=== PATIENT | female | born 1970 | race Caucasian/White ===

== ENCOUNTER → 2017-01-07 | Outpatient (CLI) | payer MEDICAID ==
[~2017-01-07] MED LIST: CALC1CAP8 PO; CEPH-376 PO; CETI10CA PO; PREN1TAB60 PO; PRIMPRO PO
== END | disposition home or self-care (01) ==
LOC: CFH 09:29
PROVIDERS: ATTEND Family Medicine
DX: Z12.31 Encounter for screening mammogram for malignant neoplasm of breast (principal)
CPT/HCPCS: G0202

== ENCOUNTER 2019-11-23 13:09 | Outpatient (CLI) | payer OTHER | END 2019-11-23 23:59 | disposition home or self-care (01) | LOC: CFH 13:09 | PROVIDERS: ATTEND Family Medicine | DX: J34.2 Deviated nasal septum (principal); J34.89 Other specified disorders of nose and nasal sinuses | CPT/HCPCS: 70486 ==

== ENCOUNTER 2020-01-28 10:22 | Outpatient (CLI) | payer MEDICAID ==
[2020-01-28] MEDS ORDERED: PROG100C16 PO (11:45)
[2020-01-28] MEDS ORDERED: ESTR1TAB15 PO (11:45)
[2020-01-28 11:48] LABS: BASOPHILS # (AUTO) 0.16 x10^3/uL (0-0.1); BASOPHILS % (AUTO) 2 % (0-1); EOSINOPHILS # (AUTO) 0.22 x10^3/uL (0-0.4); EOSINOPHILS % (AUTO) 3 % (1-7); LYMPHOCYTES # (AUTO) 2.56 x10^3/uL (1-3.4); LYMPHOCYTES % (AUTO) 29 % (22-44); MD NO; MEAN CORPUSCULAR HEMOGLOBIN 30.8 pg (27.0-34.8); MEAN CORPUSCULAR HGB CONC 33.5 g/dL (32.4-35.8); MEAN PLATELET VOLUME 8.6 fL (7.4-10.4); MONOCYTES # (AUTO) 0.46 x10^3/uL (0.2-0.8); MONOCYTES % (AUTO) 5 % (2-9); NEUTROPHILS # (AUTO) 5.49 x10^3/uL (1.8-6.8); NEUTROPHILS % (AUTO) 62 % (42-75); PLATELET COUNT 284 x10^3/uL (130-400); RED BLOOD COUNT 4.76 x10^6/uL (3.82-5.3); RED CELL DISTRIBUTION WIDTH 12.8 % (9.6-15.2)
[2020-01-28 11:56] LABS: CHLORIDE 107 mmol/L (98-107)
[2020-01-28 12:07] LABS: ALANINE AMINOTRANSFERASE 22 U/L (12-78); ALBUMIN 3.6 g/dL (3.4-5.0); ALKALINE PHOSPHATASE 82 U/L (45-117); ANION GAP 5 mmol/L (5-15); BILIRUBIN,TOTAL 0.3 mg/dL (0.2-1.0); CREATININE 0.58 mg/dL (0.55-1.02)
== END 2020-01-28 23:59 | disposition home or self-care (01) ==
LOC: STAR 10:22
PROVIDERS: ATTEND Obstetrics & Gynecology
DX: Z01.818 Encounter for other preprocedural examination (principal); N95.0 Postmenopausal bleeding; D21.9 Benign neoplasm of connective and other soft tissue, unspecified
CPT/HCPCS: 36415; 80053; 84703; 85025; 93005

== ENCOUNTER 2020-02-03 11:17 | Day surgery (SDC) | payer MEDICAID ==
[~2020-02-03] VITALS: Ht 165.1 cm; Wt 76.9 kg
[~2020-02-03 11:17] MED LIST changes: +BUPIVACAINE/PF 0.25% ONE; +EPINEPHRINE 1 MG/ML, 1ML ONE; +ESTR1TAB15 PO; +FLUORESCEIN SODIUM 500 MG/5 ML ONE; +PROG100C16 PO
[2020-02-03] MEDS ORDERED: CHLORHEXIDINE 15 ML UDC MM ONE (12:30)
[2020-02-03] MEDS ORDERED: LACTATED RINGERS 1,000 ML IV SCH (12:30)
[2020-02-03] MEDS ORDERED: MIDAZOLAM 1 MG/ML, 2ML ONE (13:21)
[2020-02-03] MEDS ORDERED: FENTANYL PF 250 MCG/5ML ONE (13:21)
[2020-02-03] MEDS ORDERED: hydrALAzine 20 MG/ML, 1ML IV PRN (13:30)
[2020-02-03] MEDS ORDERED: HALOPERIDOL 5 MG/ML IV PRN (13:30)
[2020-02-03] MEDS ORDERED: MEPERIDINE/PF 25MG/0.5ML IVPush PRN (13:30)
[2020-02-03] MEDS ORDERED: FENTANYL PF 100 MCG/2ML IV PRN (13:30)
[2020-02-03] MEDS ORDERED: OXYcodone 5 MG/5 ML ORAL.SOL UDC PO PRN (13:30)
[2020-02-03] MEDS ORDERED: DIPHENHYDRAMINE 50 MG/ML, 1ML IVPush PRN (13:30)
[2020-02-03] MEDS ORDERED: PROMETHAZINE 25 MG/ML, 1ML IVPush PRN (13:30)
[2020-02-03] MEDS ORDERED: HYDROmorphone 1 MG/ML, 1ML INJ IVPush PRN (13:30)
[2020-02-03] MEDS ORDERED: LABETALOL 5MG/ML, 20ML IV PRN (13:30)
[2020-02-03] MEDS ORDERED: SCOPOLAMINE 1MG PATCH TD ONE (13:42)
[2020-02-03] MEDS ORDERED: CEFAZOLIN 1,000 MG ONE (15:42)
[2020-02-03] MEDS ORDERED: ROCURONIUM 10MG/ML,5ML ONE (15:42)
[2020-02-03] MEDS ORDERED: GLYCOPYRROLATE 0.2MG/1ML, 5ML ONE (15:42)
[2020-02-03] MEDS ORDERED: NEOSTIGMINE 1 MG/ML, 10ML ONE (15:42)
[2020-02-03] MEDS ORDERED: SUCCINYLCHOLINE 20 MG/ML, 10ML ONE (15:42)
[2020-02-03] MEDS ORDERED: PROPOFOL 10 MG/ML, 20ML ONE (15:42)
[2020-02-03] MEDS ORDERED: DEXAMETHASONE 4 MG/ML, 1ML ONE (15:42)
[2020-02-03] MEDS ORDERED: ONDANSETRON 2MG/ML, 2ML ONE (15:42)
[2020-02-03] MEDS ORDERED: PROMETHAZINE 25 MG/ML, 1ML ONE (16:34)
[2020-02-03] MEDS ORDERED: FENTANYL PF 100 MCG/2ML ONE (16:34)
[2020-02-03] MEDS ORDERED: OXYcodone 5 MG/5 ML ORAL.SOL UDC ONE (16:35)
[2020-02-03] MEDS ORDERED: MEPERIDINE/PF 25MG/ML,1ML ONE (17:03)
[2020-02-03 19:39] LABS: BASOPHILS % (AUTO) 0 % (0-1); EOSINOPHILS % (AUTO) 0 % (1-7); LYMPHOCYTES % (AUTO) 7 % (22-44); MEAN CORPUSCULAR HEMOGLOBIN 30.3 pg (27.0-34.8); MEAN CORPUSCULAR HGB CONC 33.6 g/dL (32.4-35.8); MEAN PLATELET VOLUME 8.3 fL (7.4-10.4); MONOCYTES % (AUTO) 1 % (2-9); NEUTROPHILS % (AUTO) 91 % (42-75); PLATELET COUNT 258 x10^3/uL (130-400); RED BLOOD COUNT 4.52 x10^6/uL (3.82-5.3)
[2020-02-03 20:00] VITALS: BP 118/59
[2020-02-03] MEDS ORDERED: ONDANSETRON 2MG/ML, 2ML IV PRN (20:00)
[2020-02-03] MEDS ORDERED: OXYcodone/APAP 5/325MG TABLET PO PRN (20:00)
[2020-02-03] MEDS ORDERED: MEPERIDINE/PF 100 MG/ML IM PRN (20:00)
[2020-02-03] MEDS ORDERED: morphine SULFATE 10 MG/ML, 1ML IV PRN (20:00)
[2020-02-03] MEDS ORDERED: D5%-LACTATED RINGERS 1,000 ML IV SCH (20:00)
[2020-02-03 20:20] LABS: MD SCAN
[2020-02-03] MEDS ORDERED: IBUPROFEN 600 MG TABLET PO SCH (21:00)
[2020-02-03] MEDS ORDERED: DOCUSATE 100 MG CAPSULE PO SCH (21:00)
[2020-02-03] MEDS ORDERED: SIMETHICONE 80 MG CHEW TAB PO SCH (21:00)
[2020-02-03] MEDS ORDERED: OXYC-302 PO (21:13)
[2020-02-03] MEDS ORDERED: DOCU-131 PO (21:15)
[2020-02-03] MEDS ORDERED: IBUP-1222 PO (21:15)
== END 2020-02-03 22:07 | disposition home or self-care (01) ==
LOC: OUT 11:17 → 4NE 19:06 → OUT 22:07
PROVIDERS: ATTEND Obstetrics & Gynecology
DX: N95.0 Postmenopausal bleeding (principal); Z20.828 Contact with and (suspected) exposure to other viral communicable diseases; D25.9 Leiomyoma of uterus, unspecified; N80.0 Endometriosis of uterus; N73.6 Female pelvic peritoneal adhesions (postinfective); Z79.899 Other long term (current) drug therapy; Z88.0 Allergy status to penicillin; Z88.8 Allergy status to other drugs, medicaments and biological substances; Z90.722 Acquired absence of ovaries, bilateral; Z90.79 Acquired absence of other genital organ(s); Z90.49 Acquired absence of other specified parts of digestive tract; Z98.890 Other specified postprocedural states
CPT/HCPCS: 36415; 58550; 85025; 86850; 86900; 87635; 88307; J0171; J0330; J0690; J1100; J2250; J2405; J2550; J2704; J2710; J3010; J3490; J7120; G0378